=== PATIENT | female | born 1945 | race Caucasian/White ===

== ENCOUNTER 2024-10-01 09:42 | Outpatient (CLI) | payer MEDICARE, SELFPAY ==
--- NOTE | ~2024-10-01 | MR_ITS ---
EXAMINATION: MR shoulder RT wo con DATE: 10/01/2024 10:47 INDICATION: Right shoulder pain. TECHNIQUE: Magnetic resonance imaging (MRI) of the right shoulder was performed without intravenous c ontrast. Sequences included axial PD-weighted FS FSE, coronal oblique PD-weighted FS FSE and T2-weigh chaparro FS FSE, and sagittal oblique T2-weighted FS FSE and T1-weighted FSE. COMPARISON: None. FINDINGS: Coracoacromial arch: The acromion undersurface is flat in morphology (type I). There is severe acromioclavicular joint ost eoarthritis. There is severe subacromial/subdeltoid bursitis. Rotator cuff: There is severe supraspinatus tendinopathy. There is a full-thickness tear of anterior supraspinatus tendon measuring 6 mm anterior to posterior by 5 mm proximal to distal. There is an articular sided p artial tear of posterior aspect of supraspinatus tendon. There is moderate infraspinatus tendinopathy . Teres minor tendon is normal. Subscapularis tendon is normal. There is no asymmetric fatty atrophy of the rotator cuff muscle bellies. Biceps tendon and glenoid labrum: There is a complete tear of proximal biceps tendon. There is degenerative tearing of the glenoid labr um. Fluid: There is a large glenohumeral joint effusion. Bones/cartilage: There is full-thickness cartilage loss of humeral head and glenoid with edema-like marrow signal inte nsity and osteophytes. There are subchondral cysts of inferior glenoid. IMPRESSION: 1. Full-thickness rotator cuff tear. 2. Severe glenohumeral joint chondrosis. 3. Severe acromioclavicular joint osteoarthritis. 4. Complete tear of proximal biceps tendon. 5. Large glenohumeral joint effusion and severe subacromial/subdeltoid bursitis. Reviewed, dictated and finalized at location A. T [facility] IMPRESSION: 1. Full-thickness rotator cuff tear. 2. Severe glenohumeral joint chondrosis. 3. Severe acromioclavicular joint osteoarthritis. 4. Complete tear of proximal biceps tendon. 5. Large glenohumeral joint effusion and severe subacromial/subdeltoid bursitis .
== END 2024-10-01 09:43 | disposition home or self-care (01) ==
PROVIDERS: Visit Provider Physician Assistant
DX: M19.011 Primary osteoarthritis, right shoulder (principal); S46.211A Strain of muscle, fascia and tendon of other parts of biceps, right arm, initial encounter; X58.XXXA Exposure to other specified factors, initial encounter; M25.411 Effusion, right shoulder
CPT/HCPCS: 73221